=== PATIENT | female | born 1960 | race Caucasian/White ===

== ENCOUNTER 2025-02-16 09:15 | Inpatient (IN) | payer MEDICARE, OTHER ==
[~2025-02-16] VITALS: Ht 157.5 cm; Wt 68.0 kg
[2025-02-16] VITALS (15 sets, daily range): BP systolic 95–127; BP diastolic 53–101
[2025-02-16] MEDS ORDERED: OXYC15ER PO (10:38)
[2025-02-16] MEDS ORDERED: CefTRIAXone Sodium 1,000 MG in NS 100 ML IV SCH (11:54)
--- NOTE | 2025-02-16 14:00 | NUR ---
Palliative care visit: Consult received to complete POLST with pt. reviewed medical record, checked POLST registry, none on file. Met with pt in her room. Spouse is present. Pt is A?O x4, able to communicate and make informed decisions. Pt educated on palliative services, POLST choices. Pt educated on CPR vs DNR measures and Selective measures vs full measures. Pt chooses to be DNR with selective measures. POLST completed and signed by . Original given back to pt and copy sent to POLST registry and medical records. Pt denies any further palliative care needs, reports she has no pain, nausea, SOB, constipation, she just feels exhausted. Updated primary RN with POLST completion. Pt already has DNR code status in place.
[2025-02-16 15:47] LABS: BASOPHILS ABSOLUTE AUTO 0.02 K/mm3 (0.00-0.23); BASOPHILS PERCENT AUTO 0 % (0-2); EOSINOPHILS ABSOLUTE AUTO 0.07 K/mm3 (0.00-0.68); EOSINOPHILS PERCENT AUTO 1 % (0-6); Hematocrit 40.0 % (33.0-51.0); Hemoglobin 13.0 g/dL (11.5-16.0); IMMATURE GRAN ABSOLUTE AUTO 0.01 K/mm3 (0.00-0.10); IMMATURE GRAN PERCENT AUTO 0 % (0-1); LYMPHOCYTES ABSOLUTE AUTO 1.25 K/mm3 (0.84-5.20); LYMPHOCYTES PERCENT AUTO 18 % (21-46); MONOCYTES ABSOLUTE AUTO 0.47 K/mm3 (0.16-1.47); MONOCYTES PERCENT AUTO 7 % (4-13); Mean Corpuscular HGB Conc 32.5 g/dL (31.5-36.5); Mean Corpuscular Volume 94 fL (80-100); NEUTROPHILS ABSOLUTE AUTO 5.10 K/mm3 (1.96-9.15); NEUTROPHILS PERCENT AUTO 74 % (41-73); NRBC ABSOLUTE 0.00 K/mm3 (0.00-0.02); NRBC Auto 0.0 /100 WBC (0.0-0.2); Platelet Count 201 K/mm3 (150-400); RDW Coefficient Variation 12.6 % (11.7-14.2); RDW Standard Deviation 43.6 fL (35.1-46.3)
[2025-02-16 16:20] LABS: Anion Gap 5.0 mmol/L (3-11); Blood Urea Nitrogen 9.0 mg/dL (8-24); CO2, Blood 28.0 mmol/L (21-32); Calcium, Blood 8.6 mg/dL (8.5-10.1); Chloride, Blood 108.0 mmol/L (98-108); Creatinine, Blood 0.57 mg/dL (0.40-1.00); Glucose, Blood 144.0 mg/dL (70-99); Potassium, Blood 3.4 mmol/L (3.5-5.5); Sodium, Blood 138.0 mmol/L (136-145)
--- NOTE | 2025-02-16 16:32 | NUR ---
Dr Haywood notified of lactic acid of 2.4
[2025-02-16] MEDS ORDERED: DEXTROMETHORPHAN/BENZOCAINE 1 EACH LOZENGE MT PRN (19:45)
[2025-02-16] MEDS ORDERED: Guaifenesin/Dextromethorphan Syrup 5 ML UDC PO PRN (19:45)
[2025-02-16] MEDS ORDERED: Lactobacil 2-S.Thermo-Bifido 1 1 Cap PO SCH (21:00)
--- NOTE | 2025-02-16 21:05 | NUR ---
ASSUMPTION OF CARE: ASSUMED CARE OF PT AT 1900. PT ALERT AND ORIENTED. FOLLOWS DIRECTION AND MAKES NEEDS KNOWN. PT WEAKER ON LEFT SIDE FROM MS. PT ON RA WITH SPO2 100%, DENIES SOB, LUNGS CLEAR T/O. PT MED STATUS WITH NO TELE. SBP 110'S WITH MAP 85. DENIES CP OR PRESSURE. PUREWICK IN PLACE, DRAINING YELLOW URINE TO SUCTION. PIV TO LAC PATENT AND INFUSING LR AT 150 ML/HR. PT TOLERATING PO INTAKE WELL. MOVES IN BED WITH ASSIST. BED LOW AND LOCKED, CALL LIGHT IN REACH.
--- NOTE | 2025-02-16 22:10 | NUR ---
TRANSFER TO MED FLOOR: PT TRANSFERRED TO MEDICAL FLOOR ROOM 302 VIA BED. SLID ACROSS TO MED BED. ALL BELONGINGS SENT WITH THE PT. OFFERED TO CALL PT'S TO INFORM HIM OF THE TRANSFER. PT DECLINED, SAID SHE WOULD CALL HIM IN THE MORNING. REPORT GIVEN TO KOSTAS MALDONADO.
--- NOTE | 2025-02-16 22:24 | NUR ---
Assumed Care Patient arrived from ICU 14. Received report from Clare Melissa RN. AOx4. Conversating with staff. LR @ 150. Warm blanket provided. Bed in lowest position. Purewick in place attached to wall suction. Call light in reach. This RN performed 2 RN skin check upon transfer with Cindy Lund, Relief Charge.
[2025-02-17 02:36] VITALS: BP 117/74
--- NOTE | 2025-02-17 04:55 | NUR ---
Shift Summary AOx3. Calling for needs appropriately. Slow to respond with words. Pleasant. Cooperative. Eating pudding by self without any issue. Denies pain. Does verbalize that she is cold. Warm blankets provided. Offered to close her door as this will provide some insulation in her room, pt declined. LR @ 150 continuous. Lactic much improved. 1PA w/ bed mobility. Follows instructions well. Pt states she transfer with her 's assistance to the bathroom via w/c then stand pivot to toilet. Bed in lowest positoin. Call light in reach.
[2025-02-17 05:28] LABS: BASOPHILS ABSOLUTE AUTO 0.02 K/mm3 (0.00-0.23); BASOPHILS PERCENT AUTO 0 % (0-2); EOSINOPHILS ABSOLUTE AUTO 0.13 K/mm3 (0.00-0.68); EOSINOPHILS PERCENT AUTO 2 % (0-6); Hematocrit 34.0 % (33.0-51.0); Hemoglobin 11.0 g/dL (11.5-16.0); IMMATURE GRAN ABSOLUTE AUTO 0.01 K/mm3 (0.00-0.10); IMMATURE GRAN PERCENT AUTO 0 % (0-1); LYMPHOCYTES ABSOLUTE AUTO 1.60 K/mm3 (0.84-5.20); LYMPHOCYTES PERCENT AUTO 28 % (21-46); MONOCYTES ABSOLUTE AUTO 0.44 K/mm3 (0.16-1.47); MONOCYTES PERCENT AUTO 8 % (4-13); Mean Corpuscular HGB Conc 32.4 g/dL (31.5-36.5); Mean Corpuscular Volume 94 fL (80-100); NEUTROPHILS ABSOLUTE AUTO 3.50 K/mm3 (1.96-9.15); NEUTROPHILS PERCENT AUTO 61 % (41-73); NRBC ABSOLUTE 0.00 K/mm3 (0.00-0.02); NRBC Auto 0.0 /100 WBC (0.0-0.2); Platelet Count 203 K/mm3 (150-400); RDW Coefficient Variation 12.6 % (11.7-14.2); RDW Standard Deviation 43.1 fL (35.1-46.3)
[2025-02-17 05:55] LABS: Alanine Aminotransfer (ALT/SGP 14.0 U/L (12-78); Albumin, Blood 2.4 g/dL (3.4-5.0); Albumin/Globulin Ratio 0.8 (0.8-1.8); Anion Gap 4.0 mmol/L (3-11); Aspartate Aminotrans (AST/SGOT 8.0 U/L (12-37); Bilirubin, Total 0.6 mg/dL (0.1-1.0); Blood Urea Nitrogen 8.0 mg/dL (8-24); CO2, Blood 29.0 mmol/L (21-32); Calcium, Blood 8.4 mg/dL (8.5-10.1); Chloride, Blood 112.0 mmol/L (98-108); Creatinine, Blood 0.62 mg/dL (0.40-1.00); Globulin, Blood 3.2 g/dL (2.2-4.0); Glucose, Blood 95.0 mg/dL (70-99); Potassium, Blood 3.6 mmol/L (3.5-5.5); Sodium, Blood 141.0 mmol/L (136-145); Total Protein, Blood 5.6 g/dL (6.4-8.2)
[2025-02-17 07:39] VITALS: BP 116/61
[2025-02-17] MEDS ORDERED: Enoxaparin 40 MG/0.4 ML SYR SC SCH (09:00)
--- NOTE | 2025-02-17 11:28 | NUR ---
PT RESTING QUIETLY AT CHANGE OF SHIFT, BUT WOKE EASILY FOR B/S REPORT. ADMITTED FOR UTI/SEPSIS, RECEIVING IVF'S AND IV ABX. HX MS WITH L SIDE WEAKNESS. NO C/O AT THAT TIME. PT LATER REQUESTED PAIN MEDICATION DURING AM MED PASS; GIVEN PER EMAR AND PT REQUEST. ROLL OUT MANAGER IN TO SEE PT AND ASSESS FOR HOME NEEDS. DR DEWEY THEN IN LATER TO SEE PT AND DISCUSS PLAN OF CARE. DR DEWEY REQUESTING PT TO STAY ONE MORE DAY FOR IV ABX AND IVF'S; PT BECOMING VERY MEAN AND CURSING DR DEWEY AND STAFF. PT WANTING TO GO HOME AMA, NOT WANTING TO COMPLETE IV ABX. DR DEWEY AGREEABLE TO LET PT GO AMA PT NOT WILLING TO STAY AND WAS BEING VERY RUDE AND INAPPROPRIATE TO DR AND STAFF. HARD SCRIPT FOR PO ABX GIVEN. PT'S HERE TO TAKE PT HOME. ASSISTED PT TO W/C AND TOOK ALL PT AND BELONGINGS OUT WITH HIM.
--- NOTE | 2025-02-17 12:49 | NUR ---
CASE CONFRENCE- DISCUSSED CASE WITH CARE COORDINATION, SPEECH THERAPY, AND PROVIDER. PATIENT LEFT AMA BEFORE I WAS ABLE TO SEE HER.
== END 2025-02-17 10:55 | disposition left against medical advice (07) | DRG 872 ==
LOC: ICUE 09:15 → MEDS 10:15 → ICUE 10:15 → MEDS 22:03
PROVIDERS: Internal Medicine; ADMIT Internal Medicine
DX: A41.9 Sepsis, unspecified organism (principal); N39.0 Urinary tract infection, site not specified; E87.20 Acidosis, unspecified; G81.94 Hemiplegia, unspecified affecting left nondominant side; R65.20 Severe sepsis without septic shock; I95.9 Hypotension, unspecified; G35 Multiple sclerosis; R13.10 Dysphagia, unspecified; G89.29 Other chronic pain; Z66 Do not resuscitate; I73.9 Peripheral vascular disease, unspecified; M79.7 Fibromyalgia; Z53.29 Procedure and treatment not carried out because of patient's decision for other reasons; Z79.891 Long term (current) use of opiate analgesic
CPT/HCPCS: 36415; 80048; 80053; 83605; 85025; 92610; 97110; 97162; A9270; J0696; J1650; J7120